=== PATIENT | female | born 1980 | race Caucasian/White ===

== ENCOUNTER 2016-12-30 17:00 | Emergency (ER) | payer OTHER, SELFPAY ==
[~2016-12-30 17:00] MED LIST: Sodium Chloride Irrig Solution 250 ML BOT ONE
[2016-12-30] MEDS ORDERED: Lidocaine 1% w/Epinephrine 1:100K 20 ML VIAL ONE (17:13)
[2016-12-30] MEDS ORDERED: Adacel (T-DAP) 0.5 ML VIAL ONE (17:13)
== END 2016-12-30 17:50 | disposition home or self-care (01) ==
LOC: MADERS 17:00
DX: S81.811A Laceration without foreign body, right lower leg, initial encounter (principal); F31.9 Bipolar disorder, unspecified; F41.9 Anxiety disorder, unspecified; F20.9 Schizophrenia, unspecified; Z23 Encounter for immunization; Z79.899 Other long term (current) drug therapy; W25.XXXA Contact with sharp glass, initial encounter
CPT/HCPCS: 12004; 90471; 90715; A4353; J2001

== ENCOUNTER 2017-03-31 17:12 | Emergency (ER) | payer SELFPAY ==
[2017-03-31] MEDS ORDERED: Lidocaine Viscous Sol 2% 15 ml UD Cup ONE (17:33)
[2017-03-31] MEDS ORDERED: Clindamycin 150 MG CAP ONE (17:33)
[2017-03-31] MEDS ORDERED: Ketorolac Tromethamine 30 MG/ML VIAL ONE (17:33)
== END 2017-03-31 18:05 | disposition home or self-care (01) ==
LOC: MADERS 17:12
DX: K03.81 Cracked tooth (principal); K04.7 Periapical abscess without sinus; K02.9 Dental caries, unspecified; F31.9 Bipolar disorder, unspecified; F20.9 Schizophrenia, unspecified; F41.0 Panic disorder [episodic paroxysmal anxiety]
CPT/HCPCS: 96372; J1885

== ENCOUNTER 2019-03-02 01:36 | Emergency (ER) | payer SELFPAY | END 2019-03-02 02:40 | disposition home or self-care (01) | LOC: MADERS 01:36 | DX: K04.7 Periapical abscess without sinus (principal); K02.9 Dental caries, unspecified; F41.0 Panic disorder [episodic paroxysmal anxiety]; F20.9 Schizophrenia, unspecified; F17.210 Nicotine dependence, cigarettes, uncomplicated | CPT/HCPCS: 99282 ==

== ENCOUNTER 2020-06-15 08:13 | Emergency (ER) | payer SELFPAY ==
[2020-06-15] MEDS ORDERED: Gentamicin 80 MG/2 ML VIAL ONE ×2 (08:40→10:41)
[2020-06-15] MEDS ORDERED: Ondansetron PF 4 MG/2 ML Vial ONE (08:42)
[2020-06-15] MEDS ORDERED: Sodium Chloride 0.9% 1,000 ML ONE (08:42)
[2020-06-15 09:33] LABS: ALT (SGPT) 9 U/L (8-55); AST (SGOT) 10 U/L (5-34); Albumin 4.1 g/dL (3.5-5.0); Alkaline Phosphatase 86 U/L (40-110); Anion Gap 16 mmol/L (10-20); BUN (Urea Nitrogen) 15 mg/dL (7.0-18.7); Bilirubin, Total 0.7 mg/dL (0.2-1.2); CRP (Inflammatory) 27.67 mg/dL (= or < 0.5); Calc. Creatinine Clearance 0 mL/min (70-130); Carbon Dioxide 24 mmol/L (22-29); Chloride 101 mmol/L (98-107); Estimated GFR-MDRD 77; Globulin 2.5 g/dL (2.4-3.5); Glucose 107 mg/dL (70-105); Lipase 6 U/L (8-78); Potassium 3.8 mmol/L (3.5-5.1); Protein, Total 6.6 g/dL (6.0-8.3); Sodium 137 mmol/L (136-145)
[2020-06-15] MEDS ORDERED: Iopamidol 370 76% 100 ML VIAL ONE (09:52)
[2020-06-15] MEDS ORDERED: Morphine 4 MG/ML VIAL ONE ×2 (10:02→12:53)
[2020-06-15 10:04] LABS: Band 8 % (5-11); Eosinophils 1 % (0-10); Hemoglobin 14.1 g/dL (12.0-16.0); Lymphocytes 7 % (21-51); MDiff Complete? YES; Mean Corpuscular HGB CONC 32.7 g/dL (32.0-36.0); Mean Corpuscular Hemoglobin 29.8 pg (27.0-31.0); Mean Corpuscular Volume 91.1 fL (78.0-98.0); Mean Platelet Volume 9.8 fL (7.4-10.4); Monocytes 5 % (0-10); Neutrophil 79 % (42-75); Platelet Count 207 thou/uL (130-400); Platelet Morphology Comment Appears Adequate; RBC Distribution Width 11.2 % (11.5-14.5); RBC Morphology Normal; Red Blood Cell (RBC) Count 4.73 mill/uL (4.20-5.40); White Blood Cell (WBC) Count 27.6 thou/uL (4.8-10.8)
[2020-06-15 10:08] LABS: Bilirubin Moderate (Negative); Blood, Urine Trace (Negative); Clarity Slightly Cloudy (Clear); Glucose, Urine (Dipstick) 100 mg/dL (Negative); Ketone, Urine Trace mg/dL (Negative); Leukocyte Trace (Negative); Nitrite Positive (Negative); Protein, Urine (Dipstick) 100 mg/dL (Neg-Trace); pH, Urine 6.5 (5.0-9.0)
[2020-06-15 10:18] LABS: Pregnancy Test - Urine (BHCG) Negative (Negative); Pregu Control Background? CLEAR/WHITE (CLR/WHITE); Pregu Control Bar Appear? YES (CONTROL BAR); Specific Gravity 1.032 (1.002-1.036)
[2020-06-15 10:19] LABS: Amphetamine Detected (NotDetected); Barbiturates Screen Not Detected (NotDetected); Benzodiazepine Screen Not Detected (NotDetected); Cocaine Metabolite Screen Not Detected (NotDetected); Medtox Control Line Valid? VALID (VALID); Methadone Not Detected (NotDetected); Methamphetamine Detected (NotDetected); Opiate Screen Not Detected (NotDetected); Oxycodone Screen Not Detected (NotDetected); Phencyclidine (PCP) Not Detected (NotDetected); THC/Cannabinoid Screen Detected (NotDetected); Tricyclic Screen Not Detected (NotDetected)
[2020-06-15 10:20] LABS: Specific Gravity, Urine 1.032 (1.002-1.036)
[2020-06-15 10:30] LABS: Bacteria/HPF 2+ HPF (None Seen); WBC/HPF Greater than 50 HPF (0-3)
[2020-06-15] MEDS ORDERED: Clindamycin/D5W 900 mg/50 ml Premix Bag ONE (10:36)
[2020-06-15] MEDS ORDERED: Sodium Chloride 0.9% 100 ML ONE ×2 (10:42→10:49)
[2020-06-15] MEDS ORDERED: cefTRIAXone\\ROCEPHIN 2 GM VIAL ONE (10:48)
[2020-06-15] MEDS ORDERED: cefTRIAXone\\ROCEPHIN 1 GM VIAL ONE (10:48)
--- NOTE | 2020-06-15 11:55 | CT ---
CT Abdomen Pelvis W Con: 06/15/2020 9:39 AM CLINICAL INFORMATION: Abdominal pain COMPARISON: None. TECHNIQUE: Multiple contiguous axial images were obtained and a CT of the abdomen and pelvis with IV contrast. Oral contrast was administered. Coronal and sagittal reformats were performed. FINDINGS: Lower Chest: within normal limits. Abdomen: Liver: 1.3 cm right hepatic cyst Bile Ducts: Normal caliber. Gallbladder: No calcified gallstones. Normal caliber wall. Pancreas: within normal limits. Spleen: within normal limits. Adrenals: within normal limits. Kidneys: within normal limits. Pelvis: Reproductive Organs: No pelvic masses. Ureters: within normal limits. Bladder: within normal limits. Peritoneum: No ascites or free air, no fluid collection. Bowel: Normal caliber. Normal appendix. Mesentery and Retroperitoneum: No enlarged mesenteric or retroperitoneal lymph nodes. Vessels: Normal. Abdominal Wall: within normal limits. Bones: Within normal limits IMPRESSION: 1. No evidence of acute intraabdominal or pelvic abnormality. 2. Hepatic cyst
[2020-06-17 16:47] LABS: Chlam.trachomatis by PCR,Urine Not Detected (NotDetected)
== END 2020-06-15 13:07 | disposition short-term general hospital (02) ==
LOC: MADERS 08:13
DX: N73.9 Female pelvic inflammatory disease, unspecified (principal); D72.829 Elevated white blood cell count, unspecified; F31.9 Bipolar disorder, unspecified; F41.9 Anxiety disorder, unspecified; F20.9 Schizophrenia, unspecified; F17.210 Nicotine dependence, cigarettes, uncomplicated; E03.9 Hypothyroidism, unspecified; Z71.6 Tobacco abuse counseling
CPT/HCPCS: 36415; 74177; 80053; 80306; 81003; 81015; 81025; 82150; 82550; 83605; 83690; 84484; 85025; 86140; 87040; 87070; 87491; 87591; 96365; 96367; 96375; 96376; 99406; J0696; J1580; J2270; J2405; J3490; J7050; Q9967